=== PATIENT | female | born 1975 | race African-American/Black ===

== ENCOUNTER 2019-07-26 06:20 | Inpatient (IN) | payer OTHER ==
[~2019-07-26 06:20] MED LIST: CITRIC ACID/SODIUM CITRATE 30 ML UNIT-DOSE CUP PO ONE; ELECTROLYTE-148 SOLN 1,000 ML IV SCH
[2019-07-26] MEDS ORDERED: ELECTROLYTE-148 SOLN 1,000 ML IV SCH (06:50)
[2019-07-26 07:41] VITALS: BMI 29.1
[2019-07-26] MEDS ORDERED: morphine SULFATE/PF 0.5 MG/ML (2cc Syringe - QUVA) EP ONE (07:48)
[2019-07-26] MEDS ORDERED: ONDANSETRON 4 MG/2 ML VIAL IVPUSH PRN (07:48)
[2019-07-26] MEDS ORDERED: morphine SULFATE/PF 0.5 MG/ML (2cc Syringe - QUVA) ONE (07:56)
[2019-07-26] MEDS ORDERED: OXYTOCIN 10 UNITS/ML VIAL ONE (08:28)
[2019-07-26] MEDS ORDERED: OXYTOCIN 20 UNITS in 0.9% NS 20 UNIT/1,000 ML INFUS.BAG IV ONE ×2 (08:35→10:33)
[2019-07-26] MEDS ORDERED: ceFAZolin SODIUM 1 GM VIAL ONE (08:45)
[2019-07-26] MEDS ORDERED: ePHEDrine SULFATE 50 MG/1 ML AMPULE ONE (08:46)
[2019-07-26] MEDS ORDERED: CITRIC ACID/SODIUM CITRATE 30 ML UNIT-DOSE CUP PO ONE (09:20)
[2019-07-26] MEDS ORDERED: METHYLERGONOVINE MALEATE 0.2 MG/1 ML AMP IM PRN (09:21)
[2019-07-26] MEDS ORDERED: oxyCODONE HCL 5 MG TABLET PO PRN (09:21)
[2019-07-26] MEDS ORDERED: IBUPROFEN 800 MG/8 ML IJ IVPB ONE (09:30)
--- NOTE | 2019-07-26 09:31 | HP ---
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: Alzheimer's, CVA, Dementia, Migraine, Multiple Sclerosis, Peripheral Neuropathy, Parkinson's, Seizure, Syncope, TIA, Vertigo, Other Cardiovascular: No: AFIB, Aneurysm, Aortic Insufficiency, Aortic Stenosis, CAD, CHF, Deep Vein Thrombosis, HTN, Hyperlipdemia, AL, Mitral Insufficiency, Mitral Stenosis, Murmur, Pulmonary Hypertension, Other Pulmonary: No: Asthma, Bronchitis, Cancer, COPD, O2 Dependent, Pneumonia, Previously Intubated, Pulmonary Embolus, Pulmonary Fibrosis, Sleep Apnea, Other Gastrointestinal: No: Ascites, Cancer, Constipation, Crohn's Disease, Diverticulitis, Diverticulosis, Esophageal Varices, Gastritis, GERD, GI Bleed, Hemorrhoids, Hiatal Hernia, Inflamatory Bowel Disease, Irritable Bowel Disease, Pancreatitis, Peptic Ulcer Disease, Ulcerative Colitis, Other Hepatobiliary: No: Cirrhosis, Cholelithiasis, Cholecystitis, Choledocholithiasis , Hepatitis A, Hepatitis B, Hepatitis C, Other Renal/: No: Renal Failure, Renal Inusuff, BPH, Cancer, Hematuria, Hemodialysis , Neurogenic Bladder, Renal Calculi, UTI, Other Reproductive: No: Ectopic , Endometriosis, Fibroids, PID, Polycystic Ovary Syndrome, Postmenopausal, Other ...: 3 ...Para: 1 ...Term: 1 ...: 0 ...Spon : 0 ...Induced : 1 ...Multiple Gestation: 0 ...LMP: 11/05/18 ... Weeks Gestation by Dates: 37.5 ...EDC by Dates: 08/12/19 ...EDC by Sono: 08/12/19 Heme/Onc: No: Anemia, B12 Deficiency, Bleeding Disorder, Cancer, Current Chemotherapy, Current Radiation Therapy, Hemochromatosis, Hypercoaguable State, Myeloproliferative Synd, Sickle Cell Disease, Sickle Cell Trait, Thrombocytopenia, Other Infectious Disease: No: AIDS, C-Diff, Herpes Zoster, HIV, MRSA, STD's, Tuberculosis, VREF, Other Psych: No: Addictions, Anxiety, Bipolar, Depression, Panic, Psychosis, Schizophrenia, Other Musculoskeletal: No: Bursitis, Chronic low back pain, Hemiparesis, Hemiplegia, Osteoarthritis, Paraplegia, Other Rheumatology: No: Fibromyalgia, Gout, Lupus, Rheumatoid Arthritis, Sarcoidosis, Vasculitis, Other ENT: No: Allergic Rhinitis, Sinusitis, Other Endocrine: No: [place]'s Disease, Luna's Disease, Diabetes Insipidus, Diabetes Mellitus, Hyperparathyroidism, Hyperthyroidism, Hypothyroidism, Osteopenia, SIADH, Other Dermatology: No: Basal Cell, Cellulitis, Eczema, Melanoma, Psoriasis, Squamous Cell, Other - Past Surgical History Past Surgical History: Yes: Hx Myomectomy: No Hx Transabdominal Cerclage: No - Advance Directives Advance Directives: Yes: Living Will - Smoking History Smoking history: Never smoked Have you smoked in the past 12 months: No - Alcohol/Substance Use Hx Alcohol Use: No History of Substance Use: reports: None - Social History Usual Living Arrangement: Yes: With Spouse Do you think of yourself as: Declined to answer ADL: Independent History of Recent Travel: No Home Medications - Allergies Allergies/Adverse Reactions: Allergies Allergy/AdvReac Type Severity Reaction Status Date / Time pork derived (porcine) Allergy Mild Rash Verified 07/26/19 07:19 - Home Medications Home Medications: Ambulatory Orders Vits96/Iron Fum/Folic [ Tablet] 1 tab PO DAILY 07/26/19 Family Medical History Family History: Denies Review of Systems - Review of Systems Constitutional: reports: No Symptoms Eyes: reports: No Symptoms HENT: reports: No Symptoms Neck: reports: No Symptoms Cardiovascular: reports: No Symptoms Respiratory: reports: No Symptoms Gastrointestinal: reports: No Symptoms Genitourinary: reports: No Symptoms Breasts: reports: No Symptoms Reported Musculoskeletal: reports: No Symptoms Integumentary: reports: No Symptoms Neurological: reports: No Symptoms Endocrine: reports: No Symptoms Hematology/Lymphatic: reports: No Symptoms Psychiatric: reports: No Symptoms Physical Exam - Maternity Vital Signs: Vital Signs Temperature 98.6 F 07/26/19 06:20 Pulse Rate 9 L 07/26/19 07:14 Respiratory Rate 17 07/26/19 07:14 Blood Pressure 131/72 07/26/19 07:14 O2 Sat by Pulse Oximetry (%) Constitutional: Yes: Well Nourished, No Distress, Calm Eyes: Yes: WNL, Conjunctiva Clear, EOM Intact HENT: Yes: WNL, Atraumatic, Normocephalic Neck: Yes: WNL, Supple, Trachea Midline Cardiovascular: Yes: WNL, Regular Rate and Rhythm Lungs: Clear to auscultation Breast(s): Yes: WNL - Abdominal Exam/OB Fundal Height: 38 Number of Fetuses: Single Presentation: Vertex Contractions: Yes Regularity: Regular Intensity: Mild/Mod Monitor Mode: External Heart Rate Location: [facility] Category: I Accelerations: Uniform Decelerations: Variable - Vaginal Exam/OB Vaginal Bleediing: No Speculum Exam: No Dilatation (cm): 1 Amniotic Membrane Status: Intact Presentation: Vertex/Position Station: -3 - Physical Exam Musculoskeletal: Yes: WNL Extremities: Yes: WNL Edema: Yes Edema: LUE: 1+, RUE: 1+, LLE: 1+, RLE: 1+ Integumentary: Yes: WNL Deep Tendon Reflex Grade: Normal +2 ...Motor Strength: WNL Psychiatric: Yes: WNL, Alert, Oriented Assessment/Plan for repeat c s
--- NOTE | 2019-07-26 09:34 | OP ---
Operative Note - Note: Operative Date: 07/26/19 Pre-Operative Diagnosis: repeat lt cs , baby is down syndrome, labor, gdm on diet Operation: repeat lt c s Findings: fibroid, meconium Post-Operative Diagnosis: Other (thick meconium) Surgeon: Ze Freed Hand Box Coverer: Bao Jean Anesthesiologist/GRANULATOR OPERATOR: Rah Fajardo Anesthesia: Spinal Estimated Blood Loss (mls): 800 Operative Report Dictated: Yes
[2019-07-26] MEDS: IBUPROFEN 800 MG/8 ML IJ IVPB PRN ×2 (09:35→22:06)
[2019-07-26] MEDS: OXYTOCIN 20 UNITS in 0.9% NS 20 UNIT/1,000 ML INFUS.BAG IV SCH ×2 (09:35→10:34)
--- NOTE | 2019-07-26 12:28 | OP ---
DATE OF OPERATION: 07/26/2019 PREOPERATIVE DIAGNOSES: Previous low transverse section in labor, baby with Down syndrome, and nonreassuring heart rate tracing. POSTOPERATIVE DIAGNOSIS: Thick meconium, fibroid uterus, previous low transverse section in labor. PROCEDURE: Repeat low transverse section. SURGEON: Ze Freed MD TASSEL CLIPPER: MARISSA Brennan. ANESTHESIA: Spinal, Rah Fajardo MD INDICATIONS: This is a 43-year-old female patient 38 weeks , gestational diabetic on diet control. Patient has known about this baby with Down syndrome since about 12 weeks, 14 weeks, which was confirmed, and the patient has perinatologist follow ups throughout the . Baby was known to have Down syndrome, and baby also had a pericardial effusion, which was confirmed by the echocardiogram. Other than that, the baby's heart has been confirmed to be no other structural abnormalities by echocardiogram. Patient was scheduled for section because of history of Down syndrome and patient's history of fibroid uterus and also gestational diabetic on diet, but it is not well controlled, so patient was administered this morning. Patient started having contractions since last night. Also heartbeat was placed on a monitor also has shown to have prolonged decelerations of about 3-4 minutes but did recover and has moderate variability and acceleration. So patient was taken to the OR for the above reason for repeat transverse section. DESCRIPTION OF PROCEDURE: Patient was placed on the operating room table in supine position. After spinal anesthesia was obtained, patient's abdomen and pelvis were prepped and draped in the usual sterile manner. Pfannenstiel incision was made. Incision was made through the skin and subcutaneous tissue until the fascia was nicked in the midline. The fascia was extended bilaterally. Intraperitoneal cavity was entered. Bladder flap was not created. Low transverse segment was entered. Thick meconium was encountered, and baby was delivered in LOT position. Baby was handed over to the machine overhauler after umbilical cord doubly clamped and cut. Cord blood gas obtained. Placenta was removed. Uterus was closed in a single layer. First layer interlocking Vicryl sutures. Good hemostasis. Both gutters were cleaned. Both ovaries and fallopian tubes within normal limits. However, we did encounter fibroids. There was 4 x 4 cm of pedunculated fibroids on the fundus part of the uterus. There is another intramural fibroid of about 4 x 4 cm by right lower segment above uterus. There are no complications. Tolerated procedure well. Draining clear urine. Blood loss about 800 mL. Peritoneum was closed. Fascia was closed. Skin was closed. Transferred to recovery room in stable condition. MD SANG FALLON/[id number]
[2019-07-27] MEDS: IBUPROFEN 800 MG/8 ML IJ IVPB PRN (06:15)
[2019-07-27 08:16] LABS: BASO % 0.2 % (0-2.0); EOS % 0.1 % (0-4.5); HEMATOCRIT 23.3 % (32.4-45.2); HEMOGLOBIN 7.9 GM/dL (10.7-15.3); LYMPH % 5.1 % (8-40); MCH 29.6 pg (25.7-33.7); MONO % 7.4 % (3.8-10.2); NEUT % 87.2 % (42.8-82.8); PLATELET COUNT 235 K/MM3 (134-434); RBC 2.68 M/mm3 (3.60-5.2); RDW 15.2 % (11.6-15.6); WHITE BLOOD COUNT 16.2 K/mm3 (4.0-10.0)
[2019-07-27] MEDS: ENOXAPARIN NA (PORCINE) 40 MG/0.4 ML DISP.SYRIN SQ SCH (09:00)
--- NOTE | 2019-07-27 09:59 | PN ---
Progress Note (short form) - Note Progress Note: Anesthesia postop note 43 y/o F s/p spinal anesthesia/duramorph for section POD#1, vss, aaox3, ambulating, pain well controlled. No anesthesia complications.
[2019-07-27] MEDS ORDERED: FLU VACCINE QUAD 60 MCG/0.5 ML (MDV 19-20) IM ONE (10:00)
[2019-07-27] MEDS ORDERED: FLU VACC QS2019-20(6MOS UP)/PF 60 MCG/0.5 ML SYRINGE IM ONE (10:00)
[2019-07-27] MEDS ORDERED: DIPHTH,PERTUSS(ACELL),TET 0.5 ML DISP.SYRIN IM ONE (10:00)
[2019-07-27] MEDS: IBUPROFEN 600 MG TABLET (FP) PO PRN ×2 (13:55→21:33)
[2019-07-27] MEDS: ACETAMINOPHEN 325 MG TABLET (FP) PO PRN ×2 (13:56→21:33)
--- NOTE | 2019-07-27 15:23 | PN ---
Post Progress Note Post Day: 1 Type of Delivery: Repeat C/S Vital Signs: Vital Signs Temperature 98.7 F 07/27/19 08:40 Pulse Rate 92 H 07/27/19 08:40 Respiratory Rate 20 07/27/19 08:40 Blood Pressure 119/66 07/27/19 08:40 O2 Sat by Pulse Oximetry (%) 98 07/26/19 09:55 Breast Exam: Yes: Soft Uterus: Yes: Fundus Firm Incision: Yes: Dressing dry and intact, Sutures intact Abdomen/GI: Yes: Abdomen soft, Passing flatus, Tolerating PO Lochia: Yes: Serosa Lochia, amount: Small Extremities: Yes: Calves non-tender Perineum: Yes: Intact Activity: Ambulating - Labs Labs: CBC WBC 16.2 K/mm3 (4.0-10.0) H 07/27/19 07:35 RBC 2.68 M/mm3 (3.60-5.2) L 07/27/19 07:35 Hgb 7.9 GM/dL (10.7-15.3) L 07/27/19 07:35 Hct 23.3 % (32.4-45.2) L D 07/27/19 07:35 MCV 87.0 fl (80-96) 07/27/19 07:35 MCH 29.6 pg (25.7-33.7) 07/27/19 07:35 MCHC 34.0 g/dl (32.0-36.0) 07/27/19 07:35 RDW 15.2 % (11.6-15.6) 07/27/19 07:35 Plt Count 235 K/MM3 (134-434) D 07/27/19 07:35 MPV 7.0 fl (7.5-11.1) L 07/27/19 07:35 Absolute Neuts (auto) 14.1 K/mm3 (1.5-8.0) H 07/27/19 07:35 Neutrophils % 87.2 % (42.8-82.8) H 07/27/19 07:35 Lymphocytes % 5.1 % (8-40) L D 07/27/19 07:35 Monocytes % 7.4 % (3.8-10.2) 07/27/19 07:35 Eosinophils % 0.1 % (0-4.5) 07/27/19 07:35 Basophils % 0.2 % (0-2.0) 07/27/19 07:35 Nucleated RBC % 0 % (0-0) 07/27/19 07:35
[2019-07-27] MEDS: FERROUS SO4 325 MG TABLET (FP) PO SCH (21:33)
[2019-07-27] MEDS: SIMETHICONE 80 MG TAB.CHEW (FP) PO PRN (21:33)
[2019-07-27] MEDS: SENNOSIDES/DOCUSATE COMBO (SENNA PLUS) TABLET (UD) PO PRN (21:33)
[2019-07-28] MEDS: SIMETHICONE 80 MG TAB.CHEW (FP) PO PRN ×4 (03:33→20:15)
[2019-07-28] MEDS: oxyCODONE HCL 5 MG TABLET PO PRN ×2 (03:33→09:40)
[2019-07-28] MEDS: IBUPROFEN 600 MG TABLET (FP) PO PRN ×4 (03:34→20:15)
[2019-07-28] MEDS: FERROUS SO4 325 MG TABLET (FP) PO SCH ×2 (09:39→22:09)
[2019-07-28] MEDS: ENOXAPARIN NA (PORCINE) 40 MG/0.4 ML DISP.SYRIN SQ SCH (09:39)
[2019-07-28] MEDS: ACETAMINOPHEN 325 MG TABLET (FP) PO PRN ×2 (14:03→20:16)
--- NOTE | 2019-07-28 15:47 | PN ---
Post Progress Note Post Day: 2 Type of Delivery: Repeat C/S Vital Signs: Vital Signs Temperature 98.5 F 07/27/19 22:00 Pulse Rate 93 H 07/27/19 22:00 Respiratory Rate 18 07/27/19 22:00 Blood Pressure 134/65 07/27/19 22:00 O2 Sat by Pulse Oximetry (%) 98 07/26/19 09:55 Breast Exam: Yes: Soft Uterus: Yes: Fundus Firm, Fundus below umbilicus Incision: Yes: Dressing dry and intact, Sutures intact Abdomen/GI: Yes: Abdomen soft, Passing flatus, Tolerating PO Lochia: Yes: Serosa Lochia, amount: Small Extremities: Yes: Calves non-tender Perineum: Yes: Intact Activity: Ambulating - Labs Labs: CBC WBC 16.2 K/mm3 (4.0-10.0) H 07/27/19 07:35 RBC 2.68 M/mm3 (3.60-5.2) L 07/27/19 07:35 Hgb 7.9 GM/dL (10.7-15.3) L 07/27/19 07:35 Hct 23.3 % (32.4-45.2) L D 07/27/19 07:35 MCV 87.0 fl (80-96) 07/27/19 07:35 MCH 29.6 pg (25.7-33.7) 07/27/19 07:35 MCHC 34.0 g/dl (32.0-36.0) 07/27/19 07:35 RDW 15.2 % (11.6-15.6) 07/27/19 07:35 Plt Count 235 K/MM3 (134-434) D 07/27/19 07:35 MPV 7.0 fl (7.5-11.1) L 07/27/19 07:35 Absolute Neuts (auto) 14.1 K/mm3 (1.5-8.0) H 07/27/19 07:35 Neutrophils % 87.2 % (42.8-82.8) H 07/27/19 07:35 Lymphocytes % 5.1 % (8-40) L D 07/27/19 07:35 Monocytes % 7.4 % (3.8-10.2) 07/27/19 07:35 Eosinophils % 0.1 % (0-4.5) 07/27/19 07:35 Basophils % 0.2 % (0-2.0) 07/27/19 07:35 Nucleated RBC % 0 % (0-0) 07/27/19 07:35 Assessment/Plan dc pt home on tuesday
--- NOTE | 2019-07-28 15:50 | DS ---
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 Vital Signs: Vital Signs Temperature 98.5 F 07/27/19 22:00 Pulse Rate 93 H 07/27/19 22:00 Respiratory Rate 18 07/27/19 22:00 Blood Pressure 134/65 07/27/19 22:00 O2 Sat by Pulse Oximetry (%) 98 07/26/19 09:55 Constitutional: Yes: Well Nourished, No Distress, Calm Eyes: Yes: WNL, Conjunctiva Clear, EOM Intact HENT: Yes: WNL, Atraumatic, Normocephalic Neck: Yes: WNL, Supple, Trachea Midline Cardiovascular: Yes: WNL, Regular Rate and Rhythm Respiratory: Yes: WNL, Regular, CTA Bilaterally Gastrointestinal: Yes: WNL, Normal Bowel Sounds, Soft ...Rectal Exam: Yes: WNL Renal/: Yes: WNL Pelvis: Yes: WNL External Genitalia: Yes: Normal Internal Exam Deferred: No Vaginal Exam: Yes: Normal Cervix: Yes: Normal Uterus: Yes: Normal Adnexa: Normal: Bilateral ....Post : Yes: Uterus firm, Uterus non-tender Breast(s): Yes: WNL Musculoskeletal: Yes: WNL Extremities: Yes: WNL Edema: Yes Edema: LUE: 1+, RUE: 1+, LLE: 1+, RLE: 1+ Integumentary: Yes: WNL Wound/Incision: Yes: Clean/Dry, Well Approximated Neurological: Yes: WNL, Alert, Oriented ...Motor Strength: WNL Psychiatric: Yes: WNL, Alert, Oriented Labs: CBC, BMP 07/27/19 07:35 Delivery - Delivery Section: Repeat Type of Anesthesia: Spinal EBL (cc): 800 Delivery, Single - Stages of Labor Date of Delivery: 07/26/19 Time of Delivery: 08:24 Time Placenta Delivered: 08:25 - Condition of Infant 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/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 Instructor Chemistry Present: Yes Name: Andrew Castillo Gender: Male Weight: 3.345 kg Position: Left, OA Total Hours ROM (Hrs/Mins): 1 minute - 1 Minute Total Score: 8 5 Minutes Total Score: 8 - Feeding Plan Initial Plan: Elected not to breastfeed exclusively throughout hospitalization Discharge Summary Problems reviewed: Yes Reason For Visit: C/SECTION Procedures: Principal: repeat lt c s Hospital Course: good Health Concerns: none Plan of Treatment: bed rest as much as possible Condition: Good - Instructions Diet, Activity, Other Instructions: regular Disposition: HOME - Home Medications Comprehensive Discharge Medication List: Ambulatory Orders Vits96/Iron Fum/Folic [ Tablet] 1 tab PO DAILY 07/26/19 Prescription Drug Monitoring Program (I-STOP) results: I-STOP reviewed and no issues identified
[2019-07-28] MEDS: SENNOSIDES/DOCUSATE COMBO (SENNA PLUS) TABLET (UD) PO PRN (20:16)
[2019-07-28] MEDS: BISACODYL 10 MG SUPP.RECT RC PRN (21:23)
[2019-07-29] MEDS: IBUPROFEN 600 MG TABLET (FP) PO PRN ×4 (02:07→20:18)
[2019-07-29] MEDS: SIMETHICONE 80 MG TAB.CHEW (FP) PO PRN ×4 (02:07→20:18)
[2019-07-29] MEDS: ACETAMINOPHEN 325 MG TABLET (FP) PO PRN ×4 (02:07→20:17)
[2019-07-29 09:06] LABS: BASO % 0.4 % (0-2.0); EOS % 1.2 % (0-4.5); HEMATOCRIT 23.3 % (32.4-45.2); LYMPH % 9.1 % (8-40); MCHC 34.1 g/dl (32.0-36.0); MEAN CELL VOLUME 88.1 fl (80-96); MONO % 6.6 % (3.8-10.2); NEUT % 82.7 % (42.8-82.8); PLATELET COUNT 265 K/MM3 (134-434); RBC 2.65 M/mm3 (3.60-5.2); RDW 15.9 % (11.6-15.6); WHITE BLOOD COUNT 12.1 K/mm3 (4.0-10.0)
[2019-07-29] MEDS: FERROUS SO4 325 MG TABLET (FP) PO SCH ×2 (09:21→21:27)
[2019-07-29] MEDS: ENOXAPARIN NA (PORCINE) 40 MG/0.4 ML DISP.SYRIN SQ SCH (09:22)
[2019-07-29] MEDS: BISACODYL 10 MG SUPP.RECT RC PRN (12:44)
--- NOTE | 2019-07-29 13:14 | PN ---
Post Progress Note Post Day: 3 Type of Delivery: Repeat C/S Vital Signs: Vital Signs Temperature 97.6 F 07/28/19 22:00 Pulse Rate 98 H 07/28/19 22:00 Respiratory Rate 20 07/28/19 22:00 Blood Pressure 139/77 07/28/19 22:00 O2 Sat by Pulse Oximetry (%) 98 07/26/19 09:55 Breast Exam: Yes: Soft Uterus: Yes: Fundus Firm, Fundus below umbilicus Incision: Yes: Sutures intact Abdomen/GI: Yes: Abdomen soft, Passing flatus, Tolerating PO Lochia: Yes: Serosa Lochia, amount: Small Extremities: Yes: Calves non-tender Activity: Ambulating - Labs Labs: CBC WBC 12.1 K/mm3 (4.0-10.0) H 07/29/19 07:12 RBC 2.65 M/mm3 (3.60-5.2) L 07/29/19 07:12 Hgb 8.0 GM/dL (10.7-15.3) L 07/29/19 07:12 Hct 23.3 % (32.4-45.2) L 07/29/19 07:12 MCV 88.1 fl (80-96) 07/29/19 07:12 MCH 30.0 pg (25.7-33.7) 07/29/19 07:12 MCHC 34.1 g/dl (32.0-36.0) 07/29/19 07:12 RDW 15.9 % (11.6-15.6) H 07/29/19 07:12 Plt Count 265 K/MM3 (134-434) 07/29/19 07:12 MPV 7.0 fl (7.5-11.1) L 07/29/19 07:12 Absolute Neuts (auto) 10.0 K/mm3 (1.5-8.0) H 07/29/19 07:12 Neutrophils % 82.7 % (42.8-82.8) 07/29/19 07:12 Lymphocytes % 9.1 % (8-40) D 07/29/19 07:12 Monocytes % 6.6 % (3.8-10.2) 07/29/19 07:12 Eosinophils % 1.2 % (0-4.5) D 07/29/19 07:12 Basophils % 0.4 % (0-2.0) 07/29/19 07:12 Nucleated RBC % 0 % (0-0) 07/29/19 07:12 Assessment/Plan doing well, dc pt home tomorrow
[2019-07-29] MEDS: SENNOSIDES/DOCUSATE COMBO (SENNA PLUS) TABLET (UD) PO PRN (20:18)
[2019-07-29 22:35] VITALS: TEMP 98.4
[2019-07-30] MEDS: SIMETHICONE 80 MG TAB.CHEW (FP) PO PRN ×2 (04:01→08:57)
[2019-07-30] MEDS: ACETAMINOPHEN 325 MG TABLET (FP) PO PRN ×2 (04:01→08:57)
[2019-07-30] MEDS: IBUPROFEN 600 MG TABLET (FP) PO PRN ×2 (04:01→08:56)
[2019-07-30 09:07] VITALS: BP 133/69; PULSE 82
[2019-07-30] MEDS: FERROUS SO4 325 MG TABLET (FP) PO SCH (09:30)
[2019-07-30] MEDS: ENOXAPARIN NA (PORCINE) 40 MG/0.4 ML DISP.SYRIN SQ SCH (09:31)
--- NOTE | 2019-07-31 10:10 | PATH ---
Surgical Pathology Report Patient Name: KELL REID Med. Rec. 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 37.5 weeks, gestational diabetes, diet controlled Final Diagnosis PLACENTA: THIRD TRIMESTER PLACENTA WITH SUBCHORIONIC ACUTE INFLAMMATION AND INCREASED PIGMENTED MACROPHAGES IN THE MEMBRANES. SEE COMMENT. TRIVASCULAR CORD WITH ACUTE FUNISITIS. Comment: Findings are consistent meconium staining. Suggest clinical correlation. Electronically Signed Merlin Daly M.D. Gross Description The specimen is received fresh labeled placenta and is a 532 gram, 18 x17 x 2.1cm. placenta with attached membranes and umbilical cord. The attached membranes are insert marginally and show diffuse green to yellow discoloration. The umbilical cord measures 30 cm. in length and averages 1.4 cm. in diameter. The cord inserts centrally, 4 centimeter to the nearest margin. No true knots or strictures are identified. Cut surface of the umbilical cord reveals 3 vessels. Sectioning reveals red-brown, spongy parenchyma. No lesions are identified. Vocational Guidance Counselor sections are submitted in three cassettes as follows: 1- membrane rolls and umbilical cord; 2-3- full thickness sections of placenta KWS/07/27/2019 sulki/07/27/2019
== END 2019-07-30 13:20 | disposition home or self-care (01) | DRG 540 ==
LOC: JLDR 06:20 → J3W 10:45
PROVIDERS: ADMIT Obstetrics & Gynecology; ATTEND Obstetrics & Gynecology
PROC: 10D00Z1 Extraction of Products of Conception, Low, Open Approach (ICD-10-PCS; principal; 2019-07-26)
DX: O76 Abnormality in fetal heart rate and rhythm complicating labor and delivery (principal); O34.211 Maternal care for low transverse scar from previous cesarean delivery; N85.8 Other specified noninflammatory disorders of uterus; Z3A.38 38 weeks gestation of pregnancy; O24.420 Gestational diabetes mellitus in childbirth, diet controlled; O34.13 Maternal care for benign tumor of corpus uteri, third trimester; Z37.0 Single live birth
CPT/HCPCS: 36415; 82962; 85025; 88307-TC; 90686; 90715